=== PATIENT | female | born 1970 | race African-American/Black ===

== ENCOUNTER 2017-05-14 19:54 | Emergency (ER) | payer OTHER ==
[~2017-05-14] VITALS: Ht 167.6 cm; Wt 136.1 kg
[2017-05-14] MEDS ORDERED: INVEGA9 MG PO (20:02)
[2017-05-14] MEDS ORDERED: CYMBALTA60 MG PO (20:02)
[2017-05-14 20:30] LABS: BASOPHILS 1.1 % (0.0-2.0); EOSINOPHILS 3.2 % (0.0-3.0); HEMATOCRIT 39.6 % (37.0-47.0); HEMOGLOBIN 13.4 gm/dL (12.0-15.0); LYMPHOCYTES 43.5 % (24.0-44.0); MCH 30.4 pg (26.0-34.0); MCHC 33.9 g/dL (28.0-37.0); MCV 89.7 fL (80.0-100.0); MONOCYTES 5.9 % (1.0-8.0); PLATELET COUNT 403 thou/uL (150-400); POLYS 46.3 % (36.0-66.0); RBC 4.42 mil/uL (4.20-5.00); RDW 14.6 % (10.5-14.5); WBC 10.7 thou/uL (4.0-11.0)
[2017-05-14 20:36] LABS: ANION GAP 10 mmol/L (7-16); BUN 8 mg/dL (7-18); CHLORIDE 104 mmol/L (98-107); CO2 27 mmol/L (21-32); CREATININE 0.9 mg/dL (0.6-1.0); GLUCOSE 93 mg/dL (74-106); POTASSIUM 3.3 mmol/L (3.5-5.1); SODIUM 141 mmol/L (136-145)
[2017-05-14 20:50] LABS: ALBUMIN 3.4 g/dL (3.4-5.0); DIRECT BILIRUBIN < 0.1 mg/dL (<0.1-0.3); SGOT 12 U/L (15-37); SGPT 14 U/L (30-65); TOTAL BILIRUBIN 0.3 mg/dL (<0.1-1.0); TOTAL PROTEIN 7.3 g/dL (6.4-8.2)
== END 2017-05-14 23:19 | disposition home or self-care (01) ==
LOC: ER 19:54
PROVIDERS: Emergency Medicine
DX: T42.4X1A Poisoning by benzodiazepines, accidental (unintentional), initial encounter (principal); Y92.89 Other specified places as the place of occurrence of the external cause

== ENCOUNTER 2018-03-22 12:20 | Emergency (ER) | payer OTHER ==
[~2018-03-22] VITALS: Ht 167.6 cm; Wt 111.1 kg
[~2018-03-22 12:20] MED LIST: CYMBALTA60 MG PO; INVEGA9 MG PO
[2018-03-22 12:37] LABS: URINE BILIRUBIN NEGATIVE (Negative); URINE BLOOD NEGATIVE (Negative); URINE CLARITY CLEAR; URINE COLOR YELLOW; URINE GLUCOSE-RANDOM* NEGATIVE (Negative); URINE KETONES TRACE (Negative); URINE LEUKOCYTES-REFLEX NEGATIVE (Negative); URINE NITRITE-REFLEX NEGATIVE (Negative); URINE PROTEIN (DIPSTICK) NEGATIVE (Negative); URINE SPECIFIC GRAVITY 1.025 (1.005-1.035); URINE UROBILINOGEN 0.2 E.U./dl (0.2-1.0)
[2018-03-22 13:00] LABS: ABSOLUTE NEUTROPHILS 4.5 thou/uL (1.4-8.2); BASOPHILS 1.1 % (0.0-2.0); CALCIUM 9.6 mg/dL (8.5-10.1); CREATININE 1.1 mg/dL (0.6-1.0); EOSINOPHILS 3.2 % (0.0-3.0); HEMATOCRIT 38.6 % (37.0-47.0); HEMOGLOBIN 13.2 gm/dL (12.0-15.0); LYMPHOCYTES 42.1 % (24.0-44.0); MCH 31.1 pg (26.0-34.0); MCHC 34.1 g/dL (28.0-37.0); MCV 91.3 fL (80.0-100.0); MONOCYTES 5.9 % (1.0-8.0); PLATELET COUNT 401 thou/uL (150-400); POLYS 47.7 % (36.0-66.0); POTASSIUM 3.9 mmol/L (3.5-5.1); RBC 4.23 mil/uL (4.20-5.00); RDW 13.7 % (10.5-14.5); WBC 9.5 thou/uL (4.0-11.0)
[2018-03-22 13:06] LABS: ALBUMIN 3.8 g/dL (3.4-5.0); TOTAL BILIRUBIN 0.4 mg/dL (<0.1-1.0); TOTAL PROTEIN 7.4 g/dL (6.4-8.2)
[2018-03-22] MEDS ORDERED: PROTONIX40 M1 PO (13:17)
[2018-03-22] MEDS ORDERED: ZOFRAN ODT4 MG PO (13:17)
[2018-03-22] MEDS ORDERED: ULTRAM 50MG TAB50 MG PO (13:17)
[2018-03-22] MEDS ORDERED: CARAFATE 1 GM TA1 G1 PO (13:17)
[2018-03-22] MEDS ORDERED: SENNA-DOCUSATE1 EAC1 PO (13:17)
[2018-03-22 14:27] VITALS: BP 144/93
== END 2018-03-22 14:36 | disposition home or self-care (01) ==
LOC: ER 12:20
PROVIDERS: Emergency Medicine
DX: K29.00 Acute gastritis without bleeding (principal); G89.29 Other chronic pain; M25.569 Pain in unspecified knee; F31.9 Bipolar disorder, unspecified; F20.9 Schizophrenia, unspecified